=== PATIENT | female | born 1980 | race Caucasian/White ===

== ENCOUNTER 2023-06-02 10:06 | Outpatient (CLI) | payer OTHER, SELFPAY ==
--- NOTE | 2023-06-02 10:30 | ECG_ITS ---
Measurements Intervals [place] Rate: 75 P: 38 ND: 138 QRS: 40 QRSD: 84 T: 50 QT: 353 QTc: 396 Interpretive Statements SINUS RHYTHM BASELINE ARTIFACT- I, II, III, AVR, AVL, AVF NORMAL ECG NO PREVIOUS ECG AVAILABLE FOR COMPARISON Electronically Signed On 06-02-2023 11:31:22 CDT by César Baldwin D.O.
[2023-06-02 11:46] LABS: Hematocrit 41.2 % (37.0-47.0); Hemoglobin 13.6 g/dL (12.0-15.0)
== END 2023-06-02 10:07 | disposition home or self-care (01) ==
LOC: ANHSURGERY 10:10
PROVIDERS: Anesthesiology; PCP Family Medicine Sports Medicine; Visit Provider Surgery Plastic and Reconstructive Surgery
DX: Z01.812 Encounter for preprocedural laboratory examination (principal); Z01.810 Encounter for preprocedural cardiovascular examination; Z41.1 Encounter for cosmetic surgery
CPT/HCPCS: 36415; 85014; 85018; 93005

== ENCOUNTER 2023-06-10 00:08 | Day surgery (SDC) | payer OTHER, SELFPAY ==
[2023-05-30 12:33] VITALS: BMI 31.0
--- NOTE | 2023-05-30 12:40 | PC.NURSE ---
Report to the Outpatient Waiting Room, entrance under the green pavilion located off [facility], at time 6:00 on date 06/10/23. Planned Procedure Time: 7:30. Time changes happen often and if your time is changed the preop area will call you the afternoon before. - You and your visitor will be asked to self-screen and do not enter if you have any COVID symptoms. - A mask is optional within the hospital at this time. Patients may have clear liquids (water, carbonated beverages, clear teas, apple juice) until 3 hours prior to surgery (4:30) with a maximum of 20 ounces. - No food from midnight until time of surgery Take the following medications with a SIP of water the morning of surgery: BUPROPION, FLUOXETINE DO NOT STOP ANY OF YOUR OTHER PRESCRIPTION MEDICATIONS PRIOR TO SURGERY ?EXCEPT THE FOLLOWING Medications to discontinue per physician: VITAMINS/SUPPLEMENTS Date to take last dose: 06/06/23 Please no make-up, nail tajik, hairspray, perfume, deodorant, or body powder the day of surgery. No jewelry (including any body piercings) or valuables the day of surgery, leave them at home. Please take a shower or bath the night before, or the morning of, surgery with an antibacterial soap. Wear comfortable, loose fitting clothing. - Jewelry must be removed prior to entering the operating room. Rings and piercings that are not removed may be cut off. - The hospital will not accept responsibility for valuables. - Please leave all valuables, including medications, at home the day of surgery. If you are going home after surgery, a licensed commercial trailer truck driver must drive you home. - NO public transportation without another adult if you receive anesthesia. - We recommend that an adult stay with you for 24 hours following discharge. - We also recommend that you do not drive, make important decision, drink alcoholic beverages, or take any drugs that were not prescribed by your health care provider for at least 24 hours after your discharge time. Follow any additional instructions given to you from your surgeon. If you or anyone in your household have experienced Covid symptoms in the past week, please notify your surgeon or the nurse liaison at the phone number below for possible testing. Telephone instructions given to PT Shama KELSEY and asked if any additional questions and then verbalized understanding. Patient advised to call surgeon office or pre surgery nurse liaison [phone] if any additional questions.
[2023-06-10] VITALS (10 sets, daily range): BP systolic 115–152; BP diastolic 48–92; PULSE 66–92; RESP 12–20; TEMP 36.2; O2SAT 94–100
[2023-06-10 06:32] LABS: Urine Cotinine NEGATIVE
[2023-06-10] MEDS: LACTATED RINGERS 1,000 ML 30 ML IV CONT ×2 (06:40→12:49)
--- NOTE | 2023-06-10 07:06 | P.OP_ITS ---
Procedure Note - Detailed Date of Procedure 06/10/23 Pre-op Diagnosis breast ptosis skin laxity Post-op Diagnosis Same Procedure Performed 1. Bilateral brachioplasty 2. Bilateral mastopexy with Galaflex Surgeon Nura Murrell MD Anesthesia General Findings Inverted T Superior medial pedicle Galaflex [lot] Bilateral arm lipoaspirate 700 cc Description of Procedure She is here today for the above. Previously and again today the risks, benefits, alternatives were discussed in extensive detail. I wanted her to be very realistic about the risks involved as well as expectations. We discussed aftercare and what to monitor for. Made sure answered all of her questions to her satisfaction today and consent was obtained. Marked in the preoperative holding area with their verification. The patient was taken to the operating room placed supine on the operating table. Anesthesia was provided by anesthesiology. A surgical time-out was taken. She was prepped and draped in a standard sterile fashion. Breast Eleven blade was utilized to make a stab incision and infiltrated with low volume tumescent solution. The breast was tailor tacked into place. I tailor tacked the breast into position. Placed her in a sitting position. Verified the nipple-areolar location based on preoperative planning as well as intraoperative observations and measurements in full agreement. She was placed supine. I de-epithelialized the pedicle. I then de-epithelialized the inferior breast tissue to create an autoaugmentation flap based on intercostal environmental engineering intern. I elevated medial and lateral tissue flaps as well for planned closure. The autoaugmentation flap was sutured to the chest wall with 2-0 PDS. Galaflex was soaking on the back table in a betadine solution. Trimmed and sutured into place with 2-0 Vicryl. I closed along the IMF with 2-0 Stratafix. Along the vertical with 2-0 PDS. I closed around the [place] with 3-0 strata fix. 3-0 Monocryl along the vertical. 3-0 Stratafix along the IMF. I finally closed everything with running subcuticular 4-0 Monocryl and tissue glue. Brachioplasty Stab incisions were made and I tumesced with a tumescent solution. Once adequate time for hemostasis suction lipectomy was with a 4 mm basket cannula based on S.A.F.E. technique. This was completed based on preoperative planning, intraoperative observation, and rolling pinch test which was in full agreement. I completely de-fatted the planned resection area and a strip avulsion technique was completed. Starting proximal to distal a 10 blade was used to excise the intervening skin and this was tacked as we proceed to ensure good closure. This was closed using a 2-0 Quill, 3-0 strata fix, running subcuticular 4-0 Monocryl, and tissue glue. Fluffs, surgical bra, and dressings were placed. Tolerated the procedure well. Taken to the PACU without difficulty. All instrument sponge counts were correct at the end of the case. Estimated Blood Loss 125 Drains No Packing No Pathology None sent Complications No immediate complications Condition Stable Disposition PACU
--- NOTE | 2023-06-10 07:06 | WPDHPUPDATE1 ---
History and Physical Update Update Date/Time: 06/10/23 07:06 History and Physical has been reviewed, including an updated exam of the patient. There are NO changes in the patient's condition. Risks, benefits, and alternatives have been discussed and questions answered. Patient agrees to proceed with procedure.
--- NOTE | 2023-06-10 07:08 | WPDANESEPPF ---
Anes - Initial Pre Proc Eval Procedure: Operation Date: 06/10/23 07:30 Proposed Procedures p Bilateral Breast Mastopexy, with Galaflex, - Nura Murerll MD s Bilateral Brachioplasty - Nura Murrell MD Date/Time: 06/10/23 07:08 Surgeon: Nura Murrell MD Pre Op Diagnosis: breast ptosis Patient Data Age: 42 Gender: F Height: 1.7 m Weight: 90.9 kg Allergies Allergy/AdvReac Type Severity Reaction Status Date / Time No Known Allergies Allergy Unverified 06/10/23 07:03 Home Medications Medication Instructions Recorded Confirmed Type bupropion HCl 150 mg 24 hr tablet, 150 mg PO DAILY 05/30/23 06/10/23 History extended release fluoxetine 40 mg capsule 40 mg PO DAILY 05/30/23 06/10/23 History miunfozh-ohr-izyt 18 mg-FA 400 1 tablet PO DAILY 05/30/23 06/10/23 History mcg-calcium 500 mg-vit K 50 mcg tablet (Women's Multivitamin) turmeric 400 mg capsule 400 mg PO DAILY 05/30/23 06/10/23 History Laboratory Tests 06/10/23 06:07 Cotinine Negative Patient hx anesthesia problems: none Family hx anesthesia problems: none Results Review: All pre-operative results and documents have been reviewed as part of the pre-operative evaluation. [facility] Social History Social History Smoking packs per day: 0.5 Smoking cigarettes per day: 10.0 Years smoked: 20 Smoking pack-years: 10.00 Smoking status: Former smoker Tobacco type: cigarettes Smoking end date: 11/24/14 Alcohol intake: never Substance use: never Substance use type: does not use Living arrangements: with family Spiritual care concerns: No Anes - Eval Final PreProcedure Day of Procedure 06/10/23 07:08 Patient weight: obese Heart: regular rate and rhythm Lungs: clear to auscultation Airway: Mallampati scale class II Neurological: alert and oriented Last oral intake: >/= 8 hours ASA classification: II Emergent: no Anesthetic plan: proceed Anesthesia type and monitoring: general ETT and standard monitoring Results Review: All pre-operative results and documents have been reviewed as part of the pre-operative evaluation. Informed Consent: The patient's anesthetic plan and its attendant risks and benefits were discussed with the patient/family/POA. Questions were solicited and answers provided to the satisfaction of the patient/family/POA.
[2023-06-10] MEDS: ceFAZolin 2 GM/D5W 50 ML 2 GM/50 ML BAG IVPB (07:32)
[2023-06-10] MEDS: TRANEXAMIC ACID 1,000MG/ISO100 1,000 MG/100 ML BAG 200 MG IVPB (08:15)
[2023-06-10] MEDS: fentaNYL CITRATE INJ (*CRX) 100 MCG/2 ML VIAL 25 MCG IV PUSH ×4 (13:04→13:39)
[2023-06-10] MEDS: oxyCODONE HCL (*CRX) 5 MG TAB IR PO (14:11)
== END 2023-06-10 14:50 | disposition home or self-care (01) ==
PROVIDERS: PCP Family Medicine Sports Medicine; Visit Provider Surgery Plastic and Reconstructive Surgery
PROC: (CPT 19316; principal; 2023-06-10 07:30)
PROC: (CPT 15836; 2023-06-10 07:30)
DX: Z41.1 Encounter for cosmetic surgery (principal); N64.81 Ptosis of breast; L57.4 Cutis laxa senilis; Z87.891 Personal history of nicotine dependence; E66.9 Obesity, unspecified; Z68.31 Body mass index [BMI] 31.0-31.9, adult
CPT/HCPCS: 19316; 15777 ×2; 15836; 15878; 80307; A9270; J0171; J0690; J1100; J1170; J1580; J2250; J2405; J2704; J3010; J7120

== ENCOUNTER 2023-11-06 00:12 | Day surgery (SDC) | payer OTHER, SELFPAY ==
--- NOTE | 2023-11-04 10:33 | PC.NURSE ---
Report to the Outpatient Waiting Room, entrance under the green pavilion located off [facility], at time ___6am____ on date ___11/06/23____. Planned Procedure Time: ___730 . Time changes happen often and if your time is changed the preop area will call you the afternoon before. - You and your visitor will be asked to self-screen and do not enter if you have any COVID symptoms. - A mask is optional within the hospital at this time. Patients may have clear liquids (water, carbonated beverages, clear teas, apple juice) until 3 hours prior to surgery with a maximum of 20 ounces. stop 430am - No food from midnight until time of surgery - Infants may have breast milk until 4 hours before surgery, formula 6 hours prior to surgery. Take the following medications with a SIP of water the morning of surgery: per patient planning to not take any medication am of surgery DO NOT STOP ANY OF YOUR OTHER PRESCRIPTION MEDICATIONS PRIOR TO SURGERY ?EXCEPT THE FOLLOWING Medications to discontinue per physician per patient stopped multi vitamin 10/29/23 Date to take last dose Please no make-up, nail upper sorbian, hairspray, perfume, deodorant, or body powder the day of surgery. No jewelry (including any body piercings) or valuables the day of surgery, leave them at home. Please take a shower or bath the night before, or the morning of, surgery with an antibacterial soap. Wear comfortable, loose fitting clothing. Children are encouraged to wear pajamas. - Jewelry must be removed prior to entering the operating room. Rings and piercings that are not removed may be cut off. - The hospital will not accept responsibility for valuables. - Please leave all valuables, including medications, at home the day of surgery. If you are going home after surgery, a licensed utility driver must drive you home. - NO public transportation without another adult if you receive anesthesia. - We recommend that an adult stay with you for 24 hours following discharge. - We also recommend that you do not drive, make important decision, drink alcoholic beverages, or take any drugs that were not prescribed by your health care provider for at least 24 hours after your discharge time. Follow any additional instructions given to you from your surgeon. If you or anyone in your household have experienced Covid symptoms in the past week, please notify your surgeon or the nurse liaison at the phone number below for possible testing. Telephone instructions given to patient and asked if any additional questions and then verbalized understanding. Patient advised to call surgeon office or pre surgery nurse liaison [phone] if any additional questions.
[2023-11-04 10:42] VITALS: BMI 31.6
[2023-11-06] VITALS (10 sets, daily range): BP systolic 113–132; BP diastolic 55–78; PULSE 58–100; RESP 12–20; TEMP 36.5–37.3; O2SAT 95–100
--- NOTE | 2023-11-06 06:21 | WPDANESEPPF ---
Anes - Initial Pre Proc Eval Procedure: Operation Date: 11/06/23 07:30 Proposed Procedures p Bilateral Medial Thigh Lift - Nura Murrell MD Date/Time: 11/06/23 06:21 Surgeon: Nura Murrell MD Pre Op Diagnosis: skin laxity Patient Data Age: 43 Gender: F Height: 1.7 m Weight: 91.8 kg Allergies Allergy/AdvReac Type Severity Reaction Status Date / Time No Known Allergies Allergy Unverified 11/04/23 10:28 Home Medications Medication Instructions Recorded Confirmed Type bupropion HCl 150 mg 24 hr tablet, 150 mg PO DAILY 05/30/23 11/04/23 History extended release fluoxetine 40 mg capsule 40 mg PO DAILY 05/30/23 11/04/23 History rmtxsqia-boh-jaon 18 mg-FA 400 1 tablet PO DAILY 05/30/23 11/04/23 History mcg-calcium 500 mg-vit K 50 mcg tablet (Women's Multivitamin) Laboratory Tests 11/06/23 06:15 Cotinine Pending Patient hx anesthesia problems: none Family hx anesthesia problems: none Results Review: All pre-operative results and documents have been reviewed as part of the pre-operative evaluation. [facility] Social History Social History Smoking packs per day: 0.5 Smoking cigarettes per day: 10.0 Years smoked: 20 Smoking pack-years: 10.00 Smoking status: Former smoker Tobacco type: cigarettes Smoking end date: 11/24/14 Alcohol intake: never Substance use: never Substance use type: does not use Living arrangements: with family Spiritual care concerns: No Anes - Eval Final PreProcedure Day of Procedure 11/06/23 06:21 Patient weight: overweight Heart: regular rate and rhythm Lungs: clear to auscultation Airway: Mallampati scale class II Neurological: alert and oriented Last oral intake: >/= 8 hours ASA classification: II Emergent: no Anesthetic plan: proceed Anesthesia type and monitoring: general LMA and standard monitoring Results Review: All pre-operative results and documents have been reviewed as part of the pre-operative evaluation. Informed Consent: The patient's anesthetic plan and its attendant risks and benefits were discussed with the patient/family/POA. Questions were solicited and answers provided to the satisfaction of the patient/family/POA.
[2023-11-06 06:33] LABS: Urine Cotinine NEGATIVE
[2023-11-06] MEDS: LACTATED RINGERS 1,000 ML 30 ML IV CONT ×3 (06:40→11:32)
[2023-11-06] MEDS: SCOPOLAMINE 1.5 MG PATCH TRANSDERM (06:54)
--- NOTE | 2023-11-06 06:55 | WPDHPUPDATE1 ---
History and Physical Update Update Date/Time: 11/06/23 06:55 History and Physical has been reviewed, including an updated exam of the patient. There are NO changes in the patient's condition. Risks, benefits, and alternatives have been discussed and questions answered. Patient agrees to proceed with procedure.
--- NOTE | 2023-11-06 06:55 | W.PM.PROC2 ---
Procedure Note - Detailed Date of Procedure 11/06/23 Pre-op Diagnosis skin laxity Post-op Diagnosis Same Procedure Performed Bilateral medial thigh lift Surgeon Nura Murrell MD Anesthesia General Findings Lipoaspirate: 2,000 cc Description of Procedure Here for the above procedures. Preoperatively risks, benefits, alternatives were discussed again today in extensive detail. I want to be very realistic about the risks involved as well as expectations. Made sure answered all of their questions to satisfaction. They voiced a clear understanding. Consent obtained. Patient was marked in the preoperative holding area with their verification. Taken to the operating placed supine on the operating table. Anesthesia was provided by anesthesiology. Prepped and draped in a standard sterile fashion. Surgical time-out was taken. Stab incisions were made and I tumesced with a tumescent solution. Once adequate time for hemostasis suction lipectomy was with a 4 mm basket cannula based on S.A.F.E. technique. This was completed based on preoperative planning, intraoperative observation, and rolling pinch test which was in full agreement. I completely de-fatted the planned resection area and a strip avulsion technique was completed. Starting proximal to distal a 10 blade was used to excise the intervening skin and this was tacked as we proceed to ensure good closure. This was closed using a 2-0 Quill, 3-0 strata fix, running subcuticular 4-0 Monocryl, and tissue glue. Dressings were placed. Tolerated the procedure well. Taken to the PACU without difficulty. All instrument sponge counts were correct at the end of the case. Estimated Blood Loss 50 Drains No Packing No Pathology None sent Complications No immediate complications Condition Stable Disposition PACU
[2023-11-06] MEDS: ceFAZolin 2 GM/D5W 50 ML 2 GM/50 ML BAG IVPB (07:27)
[2023-11-06] MEDS: TRANEXAMIC ACID 1,000MG/ISO100 1,000 MG/100 ML BAG 200 MG IVPB (07:39)
[2023-11-06] MEDS: LACTATED RINGERS IRRIG 1,000 ML, LIDOCAINE HCL 1% LOCAL INJ 50 ML, EPINEPHrine HCL INJ ... INFILTRATE ×2 (08:00→08:06)
[2023-11-06] MEDS: fentaNYL CITRATE INJ (*CRX) 100 MCG/2 ML VIAL 25 MCG IV PUSH ×8 (10:39→11:23)
[2023-11-06] MEDS: HYDROmorphone HCL INJ (*CRX) 1 MG/ML SYR 0.5 MG IV PUSH ×2 (11:11→11:18)
[2023-11-06] MEDS: oxyCODONE HCL (*CRX) 5 MG TAB IR PO (12:15)
== END 2023-11-06 12:48 | disposition home or self-care (01) ==
PROVIDERS: PCP Family Medicine Sports Medicine; Visit Provider Surgery Plastic and Reconstructive Surgery
PROC: (CPT 15877; principal; 2023-11-06 07:30)
DX: Z41.1 Encounter for cosmetic surgery (principal); L57.4 Cutis laxa senilis; Z87.891 Personal history of nicotine dependence
CPT/HCPCS: 15832; 80307; A9270; J0171; J0690; J1100; J1170; J2250; J2405; J2704; J3010; J7120